=== PATIENT | female | born 1950 | race Two or more races ===

== ENCOUNTER 2018-05-15 11:51 | Outpatient (CLI) | payer OTHER ==
[~2018-05-15 11:51] MED LIST: ATENOLOL25 MG; PRILOSEC20 MG; SIMVASTATIN20 MG
== END 2018-05-15 11:53 | disposition home or self-care (01) ==
LOC: SONOGRAMA 11:51
DX: D17.79 Benign lipomatous neoplasm of other sites (principal)

== ENCOUNTER 2018-07-05 21:06 | Emergency (ER) | payer OTHER ==
[~2018-07-05] VITALS: Ht 152.4 cm; Wt 63.5 kg
== END 2018-07-05 21:51 | disposition home or self-care (01) ==
LOC: ER 21:06
DX: H60.8X1 Other otitis externa, right ear (principal)

== ENCOUNTER 2018-09-18 08:43 | Outpatient (CLI) | payer OTHER | END 2018-09-18 08:56 | disposition home or self-care (01) | LOC: MRI 08:43 | DX: M54.16 Radiculopathy, lumbar region (principal) | CPT/HCPCS: 72148 ==

== ENCOUNTER 2019-02-21 09:54 | Emergency (ER) | payer OTHER ==
[~2019-02-21] VITALS: Ht 162.6 cm; Wt 77.1 kg
== END 2019-02-21 12:26 | disposition home or self-care (01) ==
LOC: ER 09:54
DX: M54.5 Low back pain (principal); G62.89 Other specified polyneuropathies

== ENCOUNTER 2019-03-17 09:14 | Outpatient (CLI) | payer OTHER | END 2019-03-17 09:25 | disposition home or self-care (01) | LOC: RAD 09:14 | DX: M17.11 Unilateral primary osteoarthritis, right knee (principal); M17.12 Unilateral primary osteoarthritis, left knee ==